=== PATIENT | male | born 1955 | race Caucasian/White ===

== ENCOUNTER 2019-12-23 06:29 | Outpatient (CLI) | payer MEDICARE ==
[2019-12-23 11:54] LABS: Hemoglobin 12.8 g/dL (14.0-18.0); Mean Corpuscular HGB CONC 32.4 G/DL (32.0-36.0); Mean Corpuscular Hemoglobin 29.1 PG (27.0-33.0); Mean Corpuscular Volume 89.8 fl (80.0-100.0); Mean Platelet Volume 11.2 fl (7.4-10.4); Platelet Count 230 10x3/uL (130-400); RBC Distribution Width 12.7 % (11.5-14.5); White Blood Cell (WBC) Count 5.1 10x3/uL (4.5-11.0)
[2019-12-23 12:18] LABS: PTT 26.2 sec (22.0-33.0)
[2019-12-23 12:35] LABS: ALT (SGPT) 22 U/L (8-55); AST (SGOT) 19 U/L (5-34); Albumin 4.3 g/dL (3.4-4.8); Alkaline Phosphatase 84 U/L (40-110); Anion Gap 18 mmol/L (10-20); BUN (Urea Nitrogen) 11 mg/dL (8.4-25.7); Bilirubin, Total 0.7 mg/dL (0.2-1.2); Calc. Creatinine Clearance 0 mL/min (70-130); Calcium 9.3 mg/dL (7.8-10.44); Carbon Dioxide 23 mmol/L (23-31); Chloride 103 mmol/L (98-107); Estimated GFR-MDRD 77; Globulin 3.3 g/dL (2.4-3.5); Glucose 116 mg/dL (80-115); Potassium 4.3 mmol/L (3.5-5.1); Protein, Total 7.6 g/dL (5.8-8.1); Sodium 140 mmol/L (136-145)
--- NOTE | 2019-12-23 21:11 | EKG ---
Test Reason : PREOP Blood Pressure : / mmHG Vent. Rate : 069 BPM Atrial Rate : 069 BPM P-R Int : 174 ms QRS Dur : 078 ms QT Int : 358 ms P-R-T Axes : 056 051 069 degrees QTc Int : 383 ms Normal sinus rhythm Normal ECG No previous ECGs available Confirmed by Gallito CASTAÑEDA ([id number]) on 12/23/2019 9:10:53 PM Referred By: NEIDA Confirmed By:Gallito CASTAÑEDA
[2019-12-24 14:44] LABS: SARS-CoV-2 MS2 Positive; SARS-CoV-2 N Gene Negative; SARS-CoV-2 S Gene Negative; SARS-CoV-2 by NAA Not Detected (NotDetected); SARS-CoV-2 orf1ab Negative
== END 2019-12-23 06:30 | disposition home or self-care (01) ==
LOC: LABBT 06:29
PROVIDERS: ATTEND Internal Medicine Cardiovascular Disease
DX: Z01.818 Encounter for other preprocedural examination (principal); R06.02 Shortness of breath; Z20.828 Contact with and (suspected) exposure to other viral communicable diseases
CPT/HCPCS: 80053; 85027; 85610; 85730; 93005; U0003; 87635; 93010

== ENCOUNTER → 2019-12-28 | Day surgery (SDC) | payer MEDICARE ==
[2019-12-25 11:30] VITALS: BMI 23.6
[~2019-12-28] MED LIST: Clopidogrel Bisulfate 300 MG TAB ONE; Diazepam 5 MG TAB ONE; Fentanyl 100 MCG/2 ML VIAL ONE; Heparin 10,000 UNITS/ 10 ML VIAL ONE; Iopamidol 370 76% 100 ML VIAL ONE; Iopamidol 370 76% 50 ML VIAL FS ONE; Lidocaine 1% (PF) 30 ML VIAL ONE; Midazolam HCl 2 mg/2 ml Vial ONE; Nitroglycerin 100MG/250ML BOT 250 ML ONE
[2019-12-28 07:09] LABS: Cardiac Risk 3.2 (Less than 4.5)
--- NOTE | 2020-01-01 08:26 | EKG ---
Test Reason : POST STENT X1 - RCA Blood Pressure : / mmHG Vent. Rate : 069 BPM Atrial Rate : 069 BPM P-R Int : 188 ms QRS Dur : 086 ms QT Int : 376 ms P-R-T Axes : 047 015 045 degrees QTc Int : 402 ms Normal sinus rhythm Normal ECG When compared with ECG of 23-DEC-2019 10:54, ST elevation now present in Anterior leads Confirmed by NEIDA TIMMONS, BRIANNE ([id number]) on 01/01/2020 8:25:58 AM Referred By: NEIDA Confirmed By:BRIANNE CARRASQUILLO MD
== END ==
LOC: CCL 05:52
PROVIDERS: ATTEND Internal Medicine Cardiovascular Disease
PROC: 4A023N7 Measurement of Cardiac Sampling and Pressure, Left Heart, Percutaneous Approach (ICD-10-PCS; principal; 2019-12-28)
PROC: B2011ZZ Plain Radiography of Multiple Coronary Arteries using Low Osmolar Contrast (ICD-10-PCS; 2019-12-28)
DX: I25.118 Atherosclerotic heart disease of native coronary artery with other forms of angina pectoris (principal); M10.9 Gout, unspecified; E78.5 Hyperlipidemia, unspecified; I10 Essential (primary) hypertension; E11.9 Type 2 diabetes mellitus without complications; F17.220 Nicotine dependence, chewing tobacco, uncomplicated; Z79.02 Long term (current) use of antithrombotics/antiplatelets; Z79.899 Other long term (current) drug therapy; Z88.0 Allergy status to penicillin; Z88.8 Allergy status to other drugs, medicaments and biological substances; Z91.010 Allergy to peanuts; Z91.018 Allergy to other foods
CPT/HCPCS: 76942; 80061; 85347; 92928; 93005; 93454; 99152; C1760; C1874; C9600; J1644; J2001; J2250; J3010; Q9967

== ENCOUNTER 2022-04-10 07:36 | Outpatient (CLI) | payer MEDICARE ==
[2022-04-10] MEDS ORDERED: Iopamidol 370 76% 100 ML VIAL ONE (10:48)
== END 2022-04-10 07:37 | disposition home or self-care (01) ==
LOC: CT 07:36
PROVIDERS: ATTEND Internal Medicine
DX: R63.4 Abnormal weight loss (principal); D50.9 Iron deficiency anemia, unspecified; N20.0 Calculus of kidney; D13.5 Benign neoplasm of extrahepatic bile ducts
CPT/HCPCS: 74177; 82565; Q9967